=== PATIENT | female | born 1985 | race Caucasian/White ===

== ENCOUNTER 2021-08-23 11:54 | Emergency (ER) | payer MEDICAID, OTHER ==
--- NOTE | 2021-08-23 12:11 | EDM.PDOC ---
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 Is followed by a medical supervisor for this. Patient states she has had m ultiple kidney stones in the past but denies any history of pyelonephritis. She is denying any fever or shaking chills is not nauseous not having vomiting or diarrhea. Patient is having pain on both CVA areas but the left is worse than the right. Pain is worse with movement. She denies any cough or any Covid type symptoms. Patient is not vaccinated for Covid. Onset: Today Duration: Getting Worse Location: Reports: Back Quality: Reports: Ache, Sharp Severity: Severe Improves with: Reports: Rest Worsens with: Reports: Movement Associated Symptoms: Reports: No Other Symptoms Flank Pain Score (Numeric/FACES): 9 - Related Data Allergies Allergy/AdvReac Type Severity Reaction Status Date / Time Penicillins Allergy Hives Verified 08/23/21 12:23 Sulfa (Sulfonamide Allergy Hives Verified 08/23/21 12:23 Antibiotics) Home Meds: Home Meds Escitalopram Oxalate [Lexapro] 10 mg PO DAILY 08/23/21 [History] Hydrocodone/Acetaminophen [HYDROcodone-Acetaminophen 5-325 MG] 1 each PO Q4HR PRN #14 tab 08/23/21 [Rx] Potassium Citrate [Potassium Citrate ER] 10 meq PO BID 08/23/21 [History] traZODone 50 mg PO DAILY 08/23/21 [History] ED ROS GENERAL - Review of Systems Review Of Systems: Comprehensive ROS is negative, except as noted in HPI. Constitutional: Reports: No Symptoms HEENT: Reports: No Symptoms Respiratory: Reports: No Symptoms Cardiovascular: Reports: No Symptoms GI/Abdominal: Reports: No Symptoms : Reports: Flank Pain, Pain. Denies: Discharge, Hematuria, Urgency Musculoskeletal: Reports: No Symptoms Skin: Reports: No Symptoms Neurological: Reports: No Symptoms ED EXAM, RENAL/ - Physical Exam Exam: See Below General Appearance: Alert, No Apparent Distress Head: Normocephalic Neck: Normal Inspection, Supple Respiratory/Chest: No Respiratory Distress, Lungs Clear Cardiovascular: Regular Rate, Rhythm, No Murmur GI/Abdominal: Normal Bowel Sounds, Soft, Non-Tender Back Exam: CVA Tenderness (L), CVA Tenderness (R) Extremities: Non-Tender Neurological: Alert, Oriented Psychiatric: Normal Affect Skin Exam: Warm, Dry Course - Vital Signs Text/Narrative:: Patient is feeling much better after IV fluids and medication. Her labs were unremarkable. She had +1 blood in her urine. I am discharging her home with a prescription for some [place]. I am encouraging her to follow-up with her medical supervisor for continuing symptoms. She may return to ER anytime she is doing worse. Last Recorded V/S: Last Vital Signs Temp 98.4 F 08/23/21 12:01 Pulse 82 08/23/21 12:01 Resp 16 08/23/21 12:01 BP 131/93 H 08/23/21 12:01 Pulse Ox 99 08/23/21 12:01 - Orders/Labs/Meds Orders: Active Orders 24 hr Category Date Time Status Peripheral IV Care [RC] . DIRECTED Care 08/23/21 12:14 Active Sodium Chloride 0.9% [Saline Flush] Med 08/23/21 12:14 Active 10 ml FLUSH ASDIRECTED PRN Peripheral IV Insertion Adult [OM.PC] Routine Oth 08/23/21 12:13 Ordered Medication Orders Sodium Chloride (Sodium Chloride 0.9% 10 Ml Syringe) 10 ml FLUSH ASDIRECTED PRN PRN Reason: Keep Vein Open Last Admin: 08/23/21 14:03 Dose: 10 ml Documented by: HERMMIC Labs: Laboratory Tests 08/23/21 08/23/21 08/23/21 Range/Units 12:12 12:13 12:13 WBC (3.98-10.04) K/mm3 RBC (3.98-5.22) M/mm3 Hgb (11.2-15.7) gm/dl Hct (34.1-44.9) % MCV (79.4-94.8) fl MCH (25.6-32.2) pg MCHC (32.2-35.5) g/dl RDW Std Deviation (36.4-46.3) fL Plt Count (182-369) K/mm3 MPV (9.4-12.3) fl Neutrophils % (Manual) (40-60) % Band Neutrophils % (0-10) % Lymphocytes % (Manual) (20-40) % Atypical Lymphs % % Immat Monocytes % (Man) Monocytes % (Manual) (2-10) % Eosinophils % (Manual) (0.7-5.8) % Basophils % (Manual) (0.1-1.2) Metamyelocytes % Myelocytes % Promyelocytes % Blast Cells % Plasma Cell % (Manual) Nucleated RBCs % Platelet Estimate RBC Morph Comment Sodium 137 (136-145) mEq/L Potassium 3.1 L (3.5-5.1) mEq/L Chloride 97 L (98-107) mEq/L Carbon Dioxide 30 (21-32) mEq/L Anion Gap 13.1 (5-15) BUN 18 (7-18) mg/dL Creatinine 0.9 (0.55-1.02) mg/dL Est Cr Clr Drug Dosing 72.17 mL/min Estimated GFR (MDRD) > 60 (>60) mL/min BUN/Creatinine Ratio 20.0 H (14-18) Glucose 93 (70-99) mg/dL Lactic Acid (0.4-2.0) mmol/L Calcium 9.0 (8.5-10.1) mg/dL Total Bilirubin 1.2 H (0.2-1.0) mg/dL AST 22 (15-37) U/L ALT 28 (14-59) U/L Alkaline Phosphatase 66 (46-116) U/L Total Protein 7.9 (6.4-8.2) g/dl Albumin 4.4 (3.4-5.0) g/dl Globulin 3.5 gm/dL Albumin/Globulin Ratio 1.3 (1-2) Urine Color Yellow (Yellow) Urine Appearance Clear (Clear) Urine pH 5.5 (5.0-8.0) Ur Specific [place] 1.010 (1.005-1.030) Urine Protein Negative (Negative) Urine Glucose (UA) Negative (Negative) Urine Ketones Negative (Negative) Urine Occult Blood 1+ H (Negative) Urine Nitrite Negative (Negative) Urine Bilirubin Negative (Negative) Urine Urobilinogen 0.2 (0.2-1.0) Ur Leukocyte Esterase Negative (Negative) Urine HCG, Qual Negative (NEGATIVE) Urine Opiates Screen (MBQDUJ=779) Ur Buprenorphine Scrn (CUTOFF=10) Ur Oxycodone Screen (RBN3EL=842) Urine Methadone Screen (ACMSQZ=288) Ur Propoxyphene Screen (KZKTIU=900) Ur Barbiturates Screen (NRXIZY=776) Ur Tricyclics Screen (DMNMKD=539) Ur Phencyclidine Scrn (CUTOFF=25) Ur Amphetamine Screen (SJUVMX=942) U Methamphetamines Scrn (YXNEVQ=585) U Benzodiazepines Scrn (OESYBG=048) U Cocaine Metab Screen (FBANOJ=336) U Marijuana (THC) Screen (CUTOFF=50) 08/23/21 08/23/21 08/23/21 Range/Units 12:13 12:13 12:50 WBC 10.62 H (3.98-10.04) K/mm3 RBC 4.78 (3.98-5.22) M/mm3 Hgb 15.1 (11.2-15.7) gm/dl Hct 45.8 H (34.1-44.9) % MCV 95.8 H (79.4-94.8) fl MCH 31.6 (25.6-32.2) pg MCHC 33.0 (32.2-35.5) g/dl RDW Std Deviation 43.0 (36.4-46.3) fL Plt Count 215 (182-369) K/mm3 MPV 10.7 (9.4-12.3) fl Neutrophils % (Manual) 86 H (40-60) % Band Neutrophils % 0 (0-10) % Lymphocytes % (Manual) 13 L (20-40) % Atypical Lymphs % 0 % Immat Monocytes % (Man) 0 Monocytes % (Manual) 1 L (2-10) % Eosinophils % (Manual) 0 L (0.7-5.8) % Basophils % (Manual) 0 L (0.1-1.2) Metamyelocytes % 0 Myelocytes % 0 Promyelocytes % 0 Blast Cells % 0 Plasma Cell % (Manual) 0 Nucleated RBCs 0.0 % Platelet Estimate Adequate RBC Morph Comment Normal Sodium (136-145) mEq/L Potassium (3.5-5.1) mEq/L Chloride (98-107) mEq/L Carbon Dioxide (21-32) mEq/L Anion Gap (5-15) BUN (7-18) mg/dL Creatinine (0.55-1.02) mg/dL Est Cr Clr Drug Dosing mL/min Estimated GFR (MDRD) (>60) mL/min BUN/Creatinine Ratio (14-18) Glucose (70-99) mg/dL Lactic Acid 0.7 (0.4-2.0) mmol/L Calcium (8.5-10.1) mg/dL Total Bilirubin (0.2-1.0) mg/dL AST (15-37) U/L ALT (14-59) U/L Alkaline Phosphatase (46-116) U/L Total Protein (6.4-8.2) g/dl Albumin (3.4-5.0) g/dl Globulin gm/dL Albumin/Globulin Ratio (1-2) Urine Color (Yellow) Urine Appearance (Clear) Urine pH (5.0-8.0) Ur Specific [place] (1.005-1.030) Urine Protein (Negative) Urine Glucose (UA) (Negative) Urine Ketones (Negative) Urine Occult Blood (Negative) Urine Nitrite (Negative) Urine Bilirubin (Negative) Urine Urobilinogen (0.2-1.0) Ur Leukocyte Esterase (Negative) Urine HCG, Qual (NEGATIVE) Urine Opiates Screen Negative (VRCEMT=656) Ur Buprenorphine Scrn Negative (CUTOFF=10) Ur Oxycodone Screen Negative (UIA6CP=089) Urine Methadone Screen Negative (OBOTON=589) Ur Propoxyphene Screen Negative (HYLXFW=233) Ur Barbiturates Screen Negative (FUVVJM=221) Ur Tricyclics Screen Negative (EPSCPD=220) Ur Phencyclidine Scrn Negative (CUTOFF=25) Ur Amphetamine Screen Negative (CSJRFF=307) U Methamphetamines Scrn Negative (ZCWWEH=412) U Benzodiazepines Scrn Negative (BIWRHS=392) U Cocaine Metab Screen Negative (WIKYAM=295) U Marijuana (THC) Screen Presumptive positive H (CUTOFF=50) Meds: Medications Generic Name Dose Route Start Last Admin Trade Name Freq PRN Reason Stop Dose Admin Sodium Chloride 10 ml 08/23/21 12:14 08/23/21 14:03 Sodium Chloride 0.9% 10 Ml Syringe FLUSH 10 ml ASDIRECTED PRN Administration Keep Vein Open Discontinued Medications Generic Name Dose Route Start Last Admin Trade Name Freq PRN Reason Stop Dose Admin Sodium Chloride 1,000 mls @ 1,000 mls/hr 08/23/21 12:14 08/23/21 12:52 Normal Saline IV 08/23/21 13:13 1,000 mls/hr ONETIME ONE Administration Ketorolac Tromethamine 30 mg 08/23/21 12:14 08/23/21 12:52 Ketorolac 30 Mg/Ml Sdv IVPUSH 08/23/21 12:15 30 mg ONETIME ONE Administration Ondansetron HCl 4 mg 08/23/21 12:14 08/23/21 12:52 Ondansetron 4 Mg/2 Ml Sdv IVPUSH 08/23/21 12:15 4 mg ONETIME ONE Administration Departure - Departure Time of Disposition: :29 Disposition: Home, Self-Care 01 Condition: Good Clinical Impression: Ureteric colic - Discharge Information Instructions: Renal Colic, [id number] Referrals: Joyce Garza SENIOR ACCOUNTING MANAGER [Primary Care Provider] - Forms: ED Department Discharge Additional Instructions: Follow-up with your medical supervisor and urologist if symptoms continue. Ibuprofen with meals. Increase fluids. [place] as needed. Sepsis Event Note (ED) - Focused Exam Vital Signs: Vital Signs Temp Pulse Resp BP Pulse Ox 08/23/21 12:01 98.4 F 82 16 131/93 H 99 - My Orders Last 24 Hours: My Active Orders 08/23/21 12:13 Peripheral IV Insertion Adult [OM.PC] Routine 08/23/21 12:14 Peripheral IV Care [RC] . DIRECTED Sodium Chloride 0.9% [Saline Flush] 10 ml FLUSH ASDIRECTED PRN - Assessment/Plan Last 24 Hours: My Active Orders 08/23/21 12:13 Peripheral IV Insertion Adult [OM.PC] Routine 08/23/21 12:14 Peripheral IV Care [RC] . DIRECTED Sodium Chloride 0.9% [Saline Flush] 10 ml FLUSH ASDIRECTED PRN
[2021-08-23] MEDS ORDERED: Ondansetron 4 MG/2 ML SDV IVPUSH ONE (12:14)
[2021-08-23] MEDS ORDERED: Sodium Chloride 0.9% 10 ML Syringe FLUSH PRN (12:14)
[2021-08-23] MEDS ORDERED: Ketorolac 30 MG/ML SDV IVPUSH ONE (12:14)
[2021-08-23] MEDS ORDERED: Sodium Chloride 0.9% 1,000 ML IV ONE (12:14)
== END 2021-08-23 14:43 | disposition home or self-care (01) ==
LOC: JD.ED 11:54
DX: N23 Unspecified renal colic (principal)
CPT/HCPCS: 36415; 80053; 80306; 81003; 81025; 83605; 85007; 85027; 96374; 96375; 99284; J1885; J2405; J7030

== ENCOUNTER 2021-09-18 17:21 | Emergency (ER) | payer BC, MEDICAID ==
[2021-09-18] MEDS ORDERED: Sodium Chloride 0.9% 10 ML Syringe FLUSH PRN (18:19)
[2021-09-18] MEDS ORDERED: Ondansetron 4 MG/2 ML SDV IVPUSH ONE (18:20)
[2021-09-18] MEDS ORDERED: Sodium Chloride 0.9% 1,000 ML IV STA (18:20)
[2021-09-18] MEDS ORDERED: Potassium Chloride 20 MEQ Tab.ER PO ONE ×2 (19:15→22:14)
[2021-09-18] MEDS ORDERED: Acetaminophen 325 MG Tab PO ONE (20:09)
[2021-09-18] MEDS ORDERED: LORazepam 2 MG/ML SDV IVPUSH ONE (20:09)
== END 2021-09-18 22:21 | disposition home or self-care (01) ==
LOC: SUPCPDRO 17:21 → JD.ED 17:21
DX: B34.9 Viral infection, unspecified (principal); Z88.0 Allergy status to penicillin; Z88.2 Allergy status to sulfonamides; Z20.822 Contact with and (suspected) exposure to COVID-19
CPT/HCPCS: 36415; 71045; 76830; 80053; 81001; 85025; 86140; 86308; 87635; 87804; 93005; 96374; 96375; 99284; A9270; J2060; J2405; J7030; 93010; U0002

== ENCOUNTER 2021-09-20 12:53 | Emergency (ER) | payer BC ==
[2021-09-20] MEDS ORDERED: Sodium Chloride 0.9% 10 ML Syringe FLUSH PRN (13:30)
[2021-09-20] MEDS ORDERED: Ondansetron 4 MG/2 ML SDV IVPUSH ONE (13:56)
[2021-09-20] MEDS ORDERED: HYDROmorphone 0.5 MG/0.5 ML Syringe IVPUSH ONE ×2 (13:56→15:17)
[2021-09-20] MEDS ORDERED: Sodium Chloride 0.9% 1,000 ML IV SCH (14:00)
[2021-09-20] MEDS ORDERED: Metoclopramide 10 MG/2 ML SDV IVPUSH ONE (15:17)
== END 2021-09-20 16:30 | disposition home or self-care (01) ==
LOC: JD.ED 12:53
DX: R10.10 Upper abdominal pain, unspecified (principal); B34.9 Viral infection, unspecified; Z91.018 Allergy to other foods; Z88.0 Allergy status to penicillin; Z88.2 Allergy status to sulfonamides; Z86.16 Personal history of COVID-19
CPT/HCPCS: 36415; 80053; 83690; 85025; 86140; 87635; 87804; 96374; 96375; 96376; 99284; J1170; J2405; J2765; J7030; U0002

== ENCOUNTER 2021-09-22 12:00 | Inpatient (IN) | payer BC, MEDICAID ==
[2021-09-22] MEDS ORDERED: Promethazine 25 MG in Sodium Chloride 0.9% 50 ML IV PRN (12:36)
[2021-09-22] MEDS ORDERED: Morphine 2 MG/ML SYRINGE IVPUSH ONE (12:37)
[2021-09-22] MEDS ORDERED: Lactated Ringers 1,000 ML IV SCH (14:15)
[2021-09-22] MEDS ORDERED: Enoxaparin 40 MG/0.4 ML Syringe SUBCUT SCH ×2 (14:15→15:15)
[2021-09-22] MEDS ORDERED: Ondansetron 8 MG in Sodium Chloride 0.9% 50 ML IV PRN (15:12)
[2021-09-22] MEDS ORDERED: Pantoprazole 40 MG Vial ONE (15:12)
[2021-09-22] MEDS ORDERED: Acetaminophen 325 MG Tab PO PRN (15:12)
[2021-09-22] MEDS ORDERED: Dextrose 5%-0.45% NaCl 1,000 ML IV SCH (15:15)
[2021-09-22] MEDS: Acetaminophen 325 MG Tab PO PRN (15:35)
[2021-09-22] MEDS ORDERED: Pantoprazole 40 MG Vial IVPUSH ONE (16:00)
[2021-09-22] MEDS: Enoxaparin 30 MG/0.3 ML Syringe SUBCUT SCH (16:07)
[2021-09-22] MEDS: Dextrose 5%-Lact Ringers w/KCl 1,000 ML IV SCH (16:55)
[2021-09-22] MEDS: Clindamycin Phosphate in D5W 900 MG in Premix Bag 1 BAG IV SCH ×4 (16:55→23:16)
[2021-09-22] MEDS: Morphine 4 MG/ML Syringe IVPUSH PRN (17:04)
[2021-09-22] MEDS ORDERED: Iopamidol 755 Mg/ML 100 ML Bottle IVPUSH ONE (17:46)
[2021-09-22] MEDS ORDERED: Sodium Chloride 0.9% 10 ML Syringe FLUSH PRN (17:46)
[2021-09-22] MEDS ORDERED: Sodium Chloride 0.9% 100 ML IV SCH (18:00)
[2021-09-22] MEDS: Ketorolac 30 MG/ML SDV IM PRN (20:36)
[2021-09-22] MEDS: Potassium Bicarbonate/Cit Ac 10 MEQ Effervescent Tab PO SCH (20:40)
[2021-09-22] MEDS ORDERED: Temazepam 30 MG Cap PO PRN (21:00)
[2021-09-22] MEDS ORDERED: metroNIDAZOLE/Normal Saline 100 ML ONE (21:03)
[2021-09-22] MEDS ORDERED: METRONIDAZOLE IV SCH (22:00)
[2021-09-22] MEDS ORDERED: SODIUM CHLORIDE 0.9% IV SCH (22:00)
[2021-09-22] MEDS ORDERED: NORMAL SALINE IV SCH (22:00)
[2021-09-22] MEDS: metroNIDAZOLE/Normal Saline 500 MG in Premix Bag 1 BAG IV SCH (22:01)
[2021-09-22] MEDS: Temazepam 15 MG Cap PO PRN (22:20)
[2021-09-23] MEDS: Clindamycin Phosphate in D5W 900 MG in Premix Bag 1 BAG IV SCH ×6 (00:30→16:48)
[2021-09-23] MEDS: Dextrose 5%-Lact Ringers w/KCl 1,000 ML IV SCH ×3 (03:09→15:46)
[2021-09-23] MEDS: Ketorolac 30 MG/ML SDV IM PRN ×3 (03:12→16:59)
[2021-09-23] MEDS: Promethazine 25 MG Tab PO PRN ×2 (03:17→08:31)
[2021-09-23] MEDS: metroNIDAZOLE/Normal Saline 500 MG in Premix Bag 1 BAG IV SCH ×3 (05:46→21:27)
[2021-09-23] MEDS: Potassium Bicarbonate/Cit Ac 10 MEQ Effervescent Tab PO SCH ×2 (08:30→21:33)
[2021-09-23] MEDS ORDERED: Enoxaparin 40 MG/0.4 ML Syringe SUBCUT SCH (09:00)
[2021-09-23] MEDS ORDERED: Witch Hazel Medicated Pads 40/Jar TOP PRN (10:37)
[2021-09-23] MEDS: Saccharomyces Boulardii (Probiotic) 250 MG Cap PO SCH (10:52)
[2021-09-23] MEDS: LORazepam 1 MG Tab PO SCH ×2 (10:53→21:26)
[2021-09-23 11:13] LABS: HEMOGLOBIN A1C 5.9 %
[2021-09-23] MEDS: Enoxaparin 30 MG/0.3 ML Syringe SUBCUT SCH (16:48)
[2021-09-23] MEDS: Citalopram 20 MG Tab PO SCH (21:25)
[2021-09-23] MEDS: diphenhydrAMINE 50 MG Cap PO SCH (21:27)
[2021-09-23] MEDS: Temazepam 15 MG Cap PO PRN (21:42)
[2021-09-24] MEDS: Clindamycin Phosphate in D5W 900 MG in Premix Bag 1 BAG IV SCH ×4 (00:40→08:16)
[2021-09-24] MEDS: Acetaminophen 325 MG Tab PO PRN (04:21)
[2021-09-24] MEDS: Promethazine 25 MG Tab PO PRN (04:25)
[2021-09-24] MEDS: metroNIDAZOLE/Normal Saline 500 MG in Premix Bag 1 BAG IV SCH ×3 (06:13→20:59)
[2021-09-24] MEDS: Dextrose 5%-Lact Ringers w/KCl 1,000 ML IV SCH (07:36)
[2021-09-24] MEDS: Potassium Bicarbonate/Cit Ac 10 MEQ Effervescent Tab PO SCH ×2 (08:12→20:55)
[2021-09-24] MEDS: LORazepam 1 MG Tab PO SCH ×2 (08:13→20:55)
[2021-09-24] MEDS: Saccharomyces Boulardii (Probiotic) 250 MG Cap PO SCH (08:14)
[2021-09-24] MEDS: Ketorolac 30 MG/ML SDV IM PRN ×2 (08:14→14:22)
[2021-09-24] MEDS: diphenhydrAMINE 50 MG Cap PO SCH ×2 (08:14→20:56)
[2021-09-24] MEDS ORDERED: Dextrose 5%-Lact Ringers w/KCl 1,000 ML IV SCH (10:15)
[2021-09-24] MEDS: Ondansetron 8 MG in Sodium Chloride 0.9% 50 ML IV SCH ×3 (11:29→22:18)
[2021-09-24] MEDS ORDERED: Sodium Chloride 0.9% 10 ML Syringe FLUSH PRN (11:57)
[2021-09-24] MEDS ORDERED: Iopamidol 612 MG/ML 100 ML Bottle IVPUSH ONE (11:57)
[2021-09-24] MEDS ORDERED: Diatrizoate Meglumine/Diatrizoate Sodium 37% 120 ML Bottle PO ONE (11:57)
[2021-09-24] MEDS: Enoxaparin 30 MG/0.3 ML Syringe SUBCUT SCH (16:12)
[2021-09-24] MEDS: Morphine 4 MG/ML Syringe IVPUSH PRN (19:06)
[2021-09-24] MEDS: Citalopram 20 MG Tab PO SCH (20:56)
[2021-09-24] MEDS: Temazepam 15 MG Cap PO PRN (20:56)
[2021-09-25] MEDS: Ondansetron 8 MG in Sodium Chloride 0.9% 50 ML IV SCH (04:44)
[2021-09-25] MEDS: Acetaminophen 325 MG Tab PO PRN ×2 (04:51→13:51)
[2021-09-25] MEDS: metroNIDAZOLE/Normal Saline 500 MG in Premix Bag 1 BAG IV SCH (04:59)
[2021-09-25] MEDS ORDERED: Dextrose 5%-Lactated Ringers 1,000 ML IV SCH (08:15)
[2021-09-25] MEDS ORDERED: Potassium Chloride 10 MEQ in Premix Bag 1 BAG IV SCH (08:15)
[2021-09-25] MEDS: LORazepam 1 MG Tab PO SCH (08:33)
[2021-09-25] MEDS: Potassium Bicarbonate/Cit Ac 10 MEQ Effervescent Tab PO SCH (08:34)
[2021-09-25] MEDS: Saccharomyces Boulardii (Probiotic) 250 MG Cap PO SCH (08:34)
[2021-09-25] MEDS: diphenhydrAMINE 50 MG Cap PO SCH (08:34)
[2021-09-25] MEDS ORDERED: Loperamide 2 MG Cap PO PRN ×2 (08:46→14:00)
[2021-09-25] MEDS ORDERED: D5 1/2 NS w/ 20 mEq/L KCl 1,000 ML IV SCH (09:00)
[2021-09-25] MEDS ORDERED: Ondansetron 4 MG/2 ML SDV IVPUSH PRN (09:15)
[2021-09-25] MEDS ORDERED: Loperamide 2 MG Cap PO ONE (09:30)
[2021-09-25] MEDS ORDERED: Magnesium Oxide 400 MG Tab PO ONE (11:00)
[2021-09-25 11:47] LABS: BORDETELLA PARAPERT IS1001 Not Detected (Not Detected)
[2021-09-25] MEDS ORDERED: Alum Hydrox/Mag Hydrox/Simeth 30 ML, Lidocaine 2% 15 ML PO ONE ×2 (12:15)
== END 2021-09-25 16:20 | disposition home or self-care (01) | DRG 866 ==
LOC: JD.MS 12:00
PROVIDERS: ADMIT Pediatrics; ATTEND Pediatrics
DX: J10.2 Influenza due to other identified influenza virus with gastrointestinal manifestations (principal); R78.81 Bacteremia; G43.909 Migraine, unspecified, not intractable, without status migrainosus; F41.9 Anxiety disorder, unspecified; E87.6 Hypokalemia; Z20.822 Contact with and (suspected) exposure to COVID-19; B34.9 Viral infection, unspecified; E86.0 Dehydration; M25.561 Pain in right knee; R19.7 Diarrhea, unspecified; E11.9 Type 2 diabetes mellitus without complications; D64.9 Anemia, unspecified; F32.A Depression, unspecified; Z90.710 Acquired absence of both cervix and uterus; Z90.49 Acquired absence of other specified parts of digestive tract; Z87.01 Personal history of pneumonia (recurrent); Z90.89 Acquired absence of other organs; Z98.890 Other specified postprocedural states; Z87.81 Personal history of (healed) traumatic fracture; Z85.41 Personal history of malignant neoplasm of cervix uteri; Z88.0 Allergy status to penicillin; Z88.2 Allergy status to sulfonamides
CPT/HCPCS: 36415; 71275; 71275-26; 74176; 74176-26; 80053; 81001; 81025; 82150; 82272; 82947; 83036; 83605; 83690; 83735; 84145; 84439; 84443; 85025; 85379; 85652; 86140; 87040; 87045; 87046; 87086; 87338; 87486; 87493; 87581; 87633; 87798; 87899; 93005; 93306; A9270-GY; C9113; J1650; J1885; J2270; J2405; J2550; J3480; J3490; J7120; J8597; Q0163; Q9963; Q9967

== ENCOUNTER 2023-02-02 20:48 | Emergency (ER) | payer MEDICAID ==
[2023-02-02] MEDS ORDERED: Ketorolac 30 MG/ML SDV IM ONE (21:44)
== END 2023-02-02 22:00 | disposition home or self-care (01) ==
LOC: JD.ED 20:48
DX: S62.633A Displaced fracture of distal phalanx of left middle finger, initial encounter for closed fracture (principal); S60.132A Contusion of left middle finger with damage to nail, initial encounter; Z86.16 Personal history of COVID-19; Z91.018 Allergy to other foods; Z88.0 Allergy status to penicillin; Z88.2 Allergy status to sulfonamides; W23.0XXA Caught, crushed, jammed, or pinched between moving objects, initial encounter
CPT/HCPCS: 73140; 96372; 99283; J1885; 99282

== ENCOUNTER 2023-08-14 19:57 | Emergency (ER) | payer MEDICAID ==
[2023-08-14 20:46] LABS: APPEARANCE,URINE CLEAR (Clear); BILIRUBIN,URINE NEGATIVE (Negative); COLOR,URINE YELLOW (Yellow); GLUCOSE,URINE NEGATIVE (Negative); KETONES,URINE TRACE (Negative); LEUKOCYTE ESTERASE,URINE 1+ (Negative); NITRITE,URINE NEGATIVE (Negative); OCCULT BLOOD,URINE 3+ (Negative); PH,URINE 5.5 (5.0-8.0); PROTEIN,URINE 1+ (Negative); UROBILINOGEN,URINE 0.2 (0.2-1.0)
[2023-08-14 21:02] LABS: WBC,URINE 30-40 /hpf (0-5)
[2023-08-14 21:03] LABS: BACTERIA,URINE MODERATE /hpf (FEW); MUCUS,URINE MODERATE /hpf (FEW)
== END 2023-08-14 22:13 | disposition home or self-care (01) ==
LOC: JD.ED 19:57
DX: N12 Tubulo-interstitial nephritis, not specified as acute or chronic (principal); N83.8 Other noninflammatory disorders of ovary, fallopian tube and broad ligament; Z86.16 Personal history of COVID-19; Z88.8 Allergy status to other drugs, medicaments and biological substances; Z88.0 Allergy status to penicillin; Z88.2 Allergy status to sulfonamides
CPT/HCPCS: 81001; 81025; 87086; 99284

== ENCOUNTER 2025-06-28 11:40 | Emergency (ER) | payer MEDICAID, OTHER ==
[2025-06-28] MEDS ORDERED: Naloxone 0.4 MG/ML SDV IVPUSH PRN (12:19)
[2025-06-28 12:50] LABS: APPEARANCE,URINE CLEAR (Clear); GLUCOSE,URINE NEGATIVE (Negative); OCCULT BLOOD,URINE TRACE-LYSED (Negative)
[2025-06-28 13:08] LABS: BASOPHILS ABSOLUTE AUTO 0.1 K/mm3 (0.0-0.2); BASOPHILS PERCENT AUTO 0.4 % (0.0-1.0); EOSINOPHILS ABSOLUTE AUTO 0.1 K/mm3 (0.0-0.4); EOSINOPHILS PERCENT AUTO 0.5 % (0.0-6.0); IMMATURE GRAN ABSOLUTE AUTO 0.07 K/mm3 (0.00-0.05); IMMATURE GRAN PERCENT AUTO 0.6 % (0.0-0.4); LYMPHOCYTES ABSOLUTE AUTO 1.8 K/mm3 (1.0-4.8); LYMPHOCYTES PERCENT AUTO 15.5 % (24.0-44.0); MEAN PLATELET VOLUME 10.1 fl (9.4-12.3); MONOCYTES ABSOLUTE AUTO 0.7 K/mm3 (0.0-0.8); MONOCYTES PERCENT AUTO 6.1 % (0.0-8.0); NEUTROPHILS ABSOLUTE AUTO 8.8 K/mm3 (1.8-7.7); NEUTROPHILS PERCENT AUTO 76.9 % (41.0-71.0); NRBC ABSOLUTE 0.00 (0.00-0.02); NRBC PERCENT 0.0 % (0.0-0.2); PLATELET COUNT,PLT 187 K/mm3 (150-400); RED BLOOD CELL COUNT 4.14 M/mm3 (4.10-5.30); WHITE BLOOD CELL COUNT,WBC 11.39 K/mm3 (3.9-11.3)
[2025-06-28 13:41] LABS: A/G RATIO 1.2 (1-2); ALANINE AMINOTRANSFERASE,ALT 12 U/L (14-59); ASPARTATE AMNIOTRANSFERASE,AST 16 U/L (15-37); BILIRUBIN TOTAL 0.6 mg/dL (0.2-1.0); BLOOD UREA NITROGEN,BUN 14 mg/dL (7-18); CARBON DIOXIDE,CO2 28 mEq/L (21-32); CHLORIDE,CL 104 mEq/L (98-107); CREATININE 0.8 mg/dL (0.55-1.02); EST CRCL DRUG DOSING (CG) 78.10 mL/min; ESTIMATED GFR 96 mL/min (>60); GLUCOSE RANDOM 90 mg/dL (70-99); POTASSIUM,K 3.7 mEq/L (3.5-5.1); PROTEIN TOTAL,TP 6.7 g/dl (6.4-8.2); SODIUM,NA 139 mEq/L (136-145)
[2025-06-28 14:02] LABS: EPITHELIAL CELLS,URINE 0-5 /hpf (0-5)
[2025-06-28] MEDS ORDERED: Sodium Chloride 0.9% 10 ML Syringe FLUSH PRN (14:02)
[2025-06-28] MEDS: Iopamidol 755 Mg/ML 100 ML Bottle IVPUSH ONE (14:17)
[2025-06-28] MEDS: Sodium Chloride 0.9% 10 ML Syringe FLUSH PRN (14:17)
== END 2025-06-28 15:35 | disposition home or self-care (01) ==
LOC: JD.ED 11:40
DX: R10.20 Pelvic and perineal pain unspecified side (principal); Z91.018 Allergy to other foods; Z88.0 Allergy status to penicillin; Z88.2 Allergy status to sulfonamides; Z79.899 Other long term (current) drug therapy; Z86.16 Personal history of COVID-19; Z90.49 Acquired absence of other specified parts of digestive tract
CPT/HCPCS: 36415; 74177; 80053; 81001; 83690; 85025; 86140; 96361; 96374; 96376; 99284; J7030; Q9967; J1171